=== PATIENT | male | born 1975 | race Asian ===

== ENCOUNTER 2020-05-15 06:34 | Outpatient (RCR) | payer OTHER ==
[~2020-05-15] VITALS: Ht 170 cm; Wt 63.5 kg
== END 2020-05-16 09:53 | disposition home or self-care (01) ==
LOC: PREOP 06:34 → EDSTATUS 10:00 → PREOP 05-16 09:53
PROVIDERS: ATTEND Surgery
DX: Z01.812 Encounter for preprocedural laboratory examination (principal); K21.9 Gastro-esophageal reflux disease without esophagitis; Z80.0 Family history of malignant neoplasm of digestive organs

== ENCOUNTER → 2020-05-19 | Outpatient (CLI) | payer OTHER | LOC: LAB FS 10:00 | PROVIDERS: ATTEND Surgery | DX: Z01.812 Encounter for preprocedural laboratory examination (principal); K21.9 Gastro-esophageal reflux disease without esophagitis; Z85.028 Personal history of other malignant neoplasm of stomach; Z20.822 Contact with and (suspected) exposure to COVID-19 | CPT/HCPCS: 87635 ==

== ENCOUNTER 2020-05-22 09:15 | Day surgery (SDC) | payer OTHER ==
[~2020-05-22] VITALS: Ht 170 cm; Wt 63.5 kg
[2020-05-22] VITALS (8 sets, daily range): BP systolic 98–125; BP diastolic 52–80
[~2020-05-22 09:15] MED LIST: LACTATED RINGERS 1,000 ML IV ONE
[2020-05-22] MEDS ORDERED: LACTATED RINGERS 1,000 ML IV ONE (09:26)
[2020-05-22] MEDS ORDERED: PROPOFOL INJECTION 50 ML IV ONE (10:59)
[2020-05-22] MEDS ORDERED: MIDAZOLAM 2 MG/2 ML (VERSED) VIAL ONE (10:59)
--- NOTE | 2020-05-22 11:32 | Progress Note-Post Operative ---
Post-Operative Progess Note Surgeon (s)/Entry Level Sales Representative (s) Surgeon BRADEN TOBIAS DO Entry Level Sales Representative: none Pre-Operative Diagnosis Hx of H. Pylori, Gastritis, Family hx of Stomach CA Post-Operative Diagnosis Gastritis Gastric Polyp Procedure & Operative Findings Date of Procedure 05/22/20 Procedure Performed/Findings EGD with bx Anesthesia Type IV sedation by SR. STRATEGIC SOURCING MANAGER Estimated Blood Loss Estimated blood loss (mL): scant Specimens/Packing Specimens Removed antral bx antral polyp body of stomach bx GE jxn bx BRADEN TOBIAS DO May 22, 2020 11:32
--- NOTE | 2020-05-22 11:33 | Endoscopy Discharge Instruct ---
Endo Procedure/Findings Findings 1.: Gastritis 2.: Other Findings (gastric polyp) Discharge Instructions - Activity: You might feel a little sleepy until tomorrow. This is due to the medicine you received to relax you. Until tomorrow, you should: NOT drive a car, operate machinery or power tools. NOT drink any alcoholic beverages. NOT make any important decisions or sign importortant papers. Do not return to work until tomorrow, unless otherwise instructed. Resume previous activities tomorrow. Diet: Start by taking liquids. If you tolerate liquids, advance to solid food. 1.: EGD in 1 year Notify Physician - If you experience excessive bleeding, unusual abdominal pain, fever, or chest pain, contact your doctor immediately. BRADEN TOBIAS DO May 22, 2020 11:33
--- NOTE | 2020-05-22 12:48 | Anesthesia-General Post-Op ---
MAC Patient Condition Mental Status/LOC: Same as Preop Cardiovascular: Satisfactory Nausea/Vomiting: Absent Respiratory: Satisfactory Pain: Controlled Complications: Absent Post Op Complications Complications None Follow Up Care/Instructions Patient Instructions None needed. Anesthesiology Discharge Order Discharge Order Patient is doing well, no complaints, stable vital signs, no apparent adverse anesthesia problems. No complications reported per nursing. DEANDRA ARMIJO CRNA May 22, 2020 12:48
--- NOTE | 2020-05-23 04:35 | OPERATIVE REPORT ---
DATE OF SERVICE: PREOPERATIVE DIAGNOSES: History of H. pylori and family history of stomach cancer. POSTOPERATIVE DIAGNOSES: Gastritis and gastric polyp. BLOOD LOSS: Scant. FLUIDS: Per anesthesia. POSTOPERATIVE CONDITION: Stable. INDICATION FOR PROCEDURE: The patient is a 45-year-old male with a history of H. pylori and family history of gastric cancer as well there was a high increased risk of gastric cancer. FINDINGS: The patient had some gastritis and what looked like a polyp in the antrum. PROCEDURE NOTE: After informed consent was obtained, the patient was brought to the endoscopy suite, placed in bed in left lateral decubitus position. He was administered IV sedation by the EMBEDDED SYSTEMS ENGINEER who then monitored his vitals the entire time, heart rate, blood pressure and pulse ox. Scope was inserted down the mouth through the esophagus into the stomach, noted some mild gastritis, took a picture of the antrum, pushing the duodenum. Duodenum looked fine. Pulled back, did a biopsy of the antrum and then saw what looked like a polyp or flat polyp near the antrum, did a biopsy of this, retroflexed the scope, did not appear to have a hiatal hernia. Pulled the scope into the GE junction, did a biopsy of the GE junction as well as biopsy of body of stomach, suctioned all the air out of stomach and then pulled the scope up the esophagus and out the mouth. The patient tolerated the procedure, recovered in endoscopy suite. Job ID: [id number] DocumentID: [id number] Dictated Date: 05/22/2020 21:29:24 Vp & General Counsel Date: 05/23/2020 04:35:05 Dictated By: BRADEN TOBIAS DO
== END 2020-05-22 12:20 | disposition home or self-care (01) ==
LOC: ENDO 09:15
PROVIDERS: ATTEND Surgery
DX: K29.50 Unspecified chronic gastritis without bleeding (principal); K31.7 Polyp of stomach and duodenum; K31.89 Other diseases of stomach and duodenum; Z86.19 Personal history of other infectious and parasitic diseases; Z20.822 Contact with and (suspected) exposure to COVID-19; Z80.0 Family history of malignant neoplasm of digestive organs